=== PATIENT | female | born 1985 | race African-American/Black ===

== ENCOUNTER 2024-04-01 16:52 | Emergency (ER) | payer OTHER, SELFPAY ==
[2024-04-01 16:59] VITALS: BP 177/98; PULSE 102; RESP 20; TEMP 36.8; O2SAT 98
--- NOTE | 2024-04-01 17:00 | DI.CT_ITS ---
Exam(s) CT HEAD WO EXAM: CT HEAD WO CLINICAL HISTORY: headaches with visual changes. TECHNIQUE: Imaging Protocol: Axial computed tomography images with coronal and sagittal reformatted images were created and reviewed COMPARISON: No exams were available for comparison FINDINGS: Ventricles and Extra axial spaces: Normal in size and morphology for the patient's age. Hemorrhage: None. Cerebral parenchyma: No evidence of acute infarct or mass. Midline shift: None. Brainstem/Cerebellum: Normal. Calvarium: Normal. Visualized Paranasal sinuses:Clear. Mastoids: Clear. Soft Tissues: Unremarkable. ORBITS: Unremarkable. PITUITARY: Not enlarged. IMPRESSION: No acute intracranial process. RADIATION DOSE DELIVERED: Total DLP DATA REPOSITORY: All CT scans at this facility are submitted to the National Radiology Data Registry (NRDR) Dose Index Registry (DIR) with the [employer] (ACR). RADIATION OPTIMIZATION: All CT scans at this facility use at least one of these dose optimization te chniques: automated exposure control; mA and/or kV adjustment per patient size (includes targeted exa ms where dose is matched to clinical indication); or iterative reconstruction.
--- NOTE | 2024-04-01 17:12 | W.ED.GENAD ---
Discharge Plan Disposition Patient Disposition: Home Condition: Stable Discharge Details Clinical Impression: Headache Primary Care Provider: None,None ED Provider: Henrik Nunez Home Meds and New Rx's Prescriptions: No Action No Known Home Meds Discharge Instructions Additional Instructions: Your lab work and CAT scan did not show any concerning findings. I suspect this could be a tension headache versus migraine If you are still having symptoms follow-up with her primary care provider If you feel more ill, have new symptoms such as persistent vomiting or high fevers return to the emergency department for reevaluation. HPI General Mode of arrival: ambulatory. Date/Time Provider Initiated Documentation: 04/01/24 16:53. Limitations to Documentation: no limitations. Information obtained by: patient. History of Present Illness 39 year old F presents to the emergency department with the chief complaint of headaches, described as moderate, Quality is described as aching, and is localized to the head. Patient reports no radiation. Patient started experiencing this week(s) (3) and it has been intermittent. No relieving factors improve symptom(s), No exacerbating factors reported . Patient notes denies fever/chills. Patient did receive the following treatments prior to arrival, other (tylenol) Related Data Home Medications ?Medication ?Instructions ?Recorded ?Confirmed Unknown [No Known Home Meds] 04/01/24 04/01/24 Allergies Allergy/AdvReac Type Severity Reaction Status Date / Time No Known Allergies Allergy Verified 04/01/24 17:04 General Stated Complaint: Headache PEDRO: 3 Review of Systems All systems reviewed & are unremarkable except as noted in HPI and below Constitutional Constitutional: Denies chills, Denies fever(s), Reports headache(s) and Denies weakness Eyes Eyes: Denies loss of vision and Reports other visual disturbances ENT Ears, Nose, Mouth, and Throat: Reports headache(s) Cardiovascular Cardiovascular: Denies chest pain and Denies dyspnea Respiratory Respiratory: Denies cough and Denies dyspnea Gastrointestinal Gastrointestinal: Denies abdominal pain, Reports nausea and Denies vomiting Neurologic Neurologic: Reports headache(s), Denies loss of vision and Denies weakness Exam Const General: no acute distress Orientation: alert HENAL Head: normal to inspection Ears: external ears normal General nose exam: external nose normal Mouth: moist mucous membranes Eyes General: appearance normal, both eyes and all related structures Alignment and Position: alignment normal Periorbital: periorbital findings normal Eyelids: eyelids normal Conjunctivae: conjunctivae normal Pupils: PERRL EOM: EOM intact bilaterally Neck Neck: normal visual inspection and meningismus present Resp Effort & Inspection: normal respiratory effort and able to speak in complete sentences Cardio Rate: regular rate Skin General skin exam: no rashes or lesions noted Neuro General: patient alert and patient oriented x3 Extrem General: normal to inspection Psych Mental Status: mental status grossly normal Course Vital Signs Vital signs: Vital Signs Temperature 36.8 C 04/01/24 16:59 Pulse 102 H 04/01/24 16:59 Respiratory Rate 20 04/01/24 16:59 Blood Pressure 177/98 H 04/01/24 16:59 Pulse Oximetry 98 04/01/24 16:59 Temperature 36.8 C 04/01/24 16:59 Pulse 102 H 04/01/24 16:59 Respiratory Rate 20 04/01/24 16:59 Respiratory Effort Normal 04/01/24 17:03 Blood Pressure 177/98 H 04/01/24 16:59 Pulse Oximetry 98 04/01/24 16:59 Pain Level 0 04/01/24 16:59 Medical Decision Making 39-year-old female with no significant past medical history other than has had intermittent headaches in the past comes in with 3 weeks of more frequent anterior head aches and with some blurred vision intermittently. Denies any fevers, neck stiffness, weakness. She otherwise feels well. She states the pain slowly increases and is not thunderclap. She has had some nausea without vomiting. She is well-appearing on exam, has no facial or periorbital swelling, pupils are equal and reactive to light. Extraocular eye movements are intact. No restricted neck movements, normal gait. I suspect migraine but given increase in terms of the last 3 weeks will check basic labs and CT head to evaluate for possible mass, she has no symptoms to suggest subarachnoid hemorrhage and no findings on exam or history to suggest [employer] infection. Labs and imaging unremarkable, patient stable. Still has no meningismus and headache improved. Suspect tension headache versus migraine, she is stable for discharge and will follow-up with her PCP, return precautions given Differential Diagnosis Differential Diagnosis: Tension headache, migraine, mass Lab Data Lab results reviewed: Yes I reviewed the patient's lab results. Quality:SDOH Health Related Social Needs: No Data to Display PFSH All Active Problems (Updated 04/01/24 @ 18:26 by Henrik Nunez MD) Headache (Acute) Social History Smoking/Tobacco Use Status: Never Smoking risk assessment performed?: Yes Alcohol Intake: current Alcohol Intake frequency: a few times a month Drug use: Never Substance use type: does not use Housing: house Do you feel safe at home: Yes Do you feel safe in your relationship?: Yes
[2024-04-01 17:26] LABS: Abs Immature Grans 0.04 10^3/uL (0.0-0.06); Absolute Basophil Count 0.06 10^3/uL (0.0-0.2); Absolute Eosinophil Count 0.04 10^3/uL (0.0-0.7); Absolute Lymphocyte Count 2.54 10^3/uL (1.2-3.4); Absolute Monocyte Count 0.54 10^3/uL (0.1-0.8); Absolute Neutrophil Count 6.86 10^3/uL (1.2-6.7); Basophils % 0.6 %; Eosinophils % 0.4 %; HCT 36.7 % (36.0-46.0); HGB 11.8 g/dL (11.2-15.7); Immature Grans % 0.4 %; Lymphocytes % 25.2 %; MCH 26.4 pg (27.0-33.0); MCHC 32.2 % (32.0-36.0); MCV 82 fL (80-95); MPV 10.3 fL (8.0-11.0); Monocytes % 5.4 %; Platelet Count 350 10^3/uL (130-400); RBC 4.47 10^6/uL (3.93-5.22); RDW 14.5 % (11.7-14.6); RDW-SD 43.5 fL; WBC 10.08 10^3/uL (4.4-10.8)
[2024-04-01] MEDS: Prochlorperazine 10 MG/2 ML VIAL IVP (17:34)
[2024-04-01] MEDS: Dexamethasone 10 MG/ML VIAL IVP (17:35)
[2024-04-01] MEDS: Ketorolac 15 MG/ML VIAL IVP (17:35)
[2024-04-01 17:42] LABS: ALT 22 U/L (14-59); AST 14 U/L (15-37); Albumin 3.7 g/dL (3.4-5.0); Alkaline Phosphatase 75 U/L (46-116); Anion Gap 8.6 mmol/L (3-11); BUN 10 mg/dL (7-18); Bilirubin, Total 0.43 mg/dL (0.2-1.0); CO2 28.4 mmol/L (21.0-32.0); Calcium 8.7 mg/dL (8.5-10.1); Chloride 103 mmol/L (98-107); Estimated GFR 73.95 (mL/min/1.73m2); Glucose 107 mg/dL (74-106); Magnesium 1.9 mg/dL (1.8-2.4); Potassium 3.9 mmol/L (3.5-5.1); Sodium 140 mmol/L (136-145); Total Protein 7.9 g/dL (6.4-8.2)
--- OUTSIDE RECORDS SUMMARY | 2024-04-01 18:07 | XMS_ITS | Clinical Summary ---
Author Organization [facility] Address [address] [place] [address] Care Team Providers Care Medicaid Plan Compliance Director Name Role Phone Unavailable Primary Care Provider Unavailabl e Social History Tobacco Use Types Packs/Day Years Used Date Smoking Tobacco: Never Assessed Comments Unknown Sex and Gender Information Value Date Recorded Sex Assigned at Not on file Legal Sex Female 12:27 EDT Gender Identity Not on file Sexual Orientation Not on file Plan of Treatment Health Maintenance Due Date Last Done Comments Hepatitis C Screen 1986 Hepatitis B Vaccine (1 of 3 - 19+ 3-dose series) 02/09 COVID-19 Vaccine ( season) 2023
--- OUTSIDE RECORDS SUMMARY | 2024-04-01 18:07 | XMS_ITS | Encounter Summary ---
Author Organization [facility] Address [address] [place] [id number] Care Team Providers Care Mechanical Facilities Technician Name Role Phone Unavailable Primary Care Provider Unavailabl e Encounter Details Date Type Department Care Team (Late st Contact Info) Description 11/03/2021 Lab Requisition [facility] Pathology & Laboratory Medicine - [address] [address] Outr Resulting Lab, Provider Social History Tobacco Use Types Packs/Day Years Used Date Smoking Tobacco: Never Assessed Comments Unknown Sex and Gender Information Value Date Recorded Sex Assigned at Not on file Legal Sex Female 12:27 EDT Gender Identity Not on file Sexual Orientation Not on file documented as of this encounter Plan of Treatment Not on file documented as of this encounter Procedures Procedure Name Priority Date/Time Associated Diagnosis Comments QUANTIFERON MITOGEN (PERFORMABLE) Today 11/02/2021 11:20 EDT QUANTIFERON TB2 (PERFORMABLE) Today 11/02/2021 11:20 EDT QUANTIFERON TB1 (PERFORMABLE) Today 11/02/2021 11:20 EDT QUANTIFERON NIL (PERFORMABLE) Today 11/02/2021 11:20 EDT QUANTIFERON INTERPRETATION (PERFORMABLE) Today 11/02/2021 11:20 EDT QUANTIFERON TB GOLD PLUS Routine 11/02/2021 11:20 EDT documented in this encounter Results * QUANTIFERON INTERPRETATION (PERFORMABLE) (11/02/2021 11:20 EDT) Quantiferon Interpretation Negative Negative 11/07/2021 11:41 EDT [facility] Comment:No interferon-gamma response to M. tuberculosis antigens was detected. ??Infection with M. tuberculosis is unlikely. A single negative result does not exclude infection with M. tuberculosis. ??In patients at high risk for M. tuberculosis infection, a second test should be considered. TB1 Ag minus Nil 0.02 IU/ml 11/08/19 11:41 EDT [facility] TB2 Ag minus Nil 0.05 IU/mL 11/08/19 11:41 EDT [facility] Blood VENOUS BLOOD / Unknown 11/02/2021 11:20 EDT 11/06/2021 20:28 EDT Narrative [facility] - 11/07/2021 11:41 EDT Results were obtained with the [employer] QuantiFERON-TB Gold Plus CLIA. New platform in use 12/28/2020 us Provider Outr Resulting Lab IMMUNOLOGY AND SEROL OGY ORDERABLES Final Result Performing Organization Address [facility] Co de Phone Number [facility] [address] [place] [id number] * QUANTIFERON MITOGEN (PERFORMABLE) (11/02/2021 11:20 EDT) Blood VENOUS BLOOD / Unknown 11/02/2021 11:20 EDT 11/03/2021 16:36 EDT us Provider Outr Resulting Lab IMMUNOLOGY AND SEROL OGY ORDERABLES Final Result Performing Organization Address [facility] Co de Phone Number [facility] [address] [place] [phone] * QUANTIFERON TB2 (PERFORMABLE) (11/02/2021 11:20 EDT) Blood VENOUS BLOOD / Unknown 11/02/2021 11:20 EDT 11/03/2021 16:36 EDT us Provider Outr Resulting Lab IMMUNOLOGY AND SEROL OGY ORDERABLES Final Result Performing Organization Address [facility] Co de Phone Number [facility] [address] [place] [address] * QUANTIFERON TB1 (PERFORMABLE) (11/02/2021 11:20 EDT) Blood VENOUS BLOOD / Unknown 11/02/2021 11:20 EDT 11/03/2021 16:36 EDT us Provider Outr Resulting Lab IMMUNOLOGY AND SEROL OGY ORDERABLES Final Result Performing Organization Address [facility] Co de Phone Number [facility] [address] [place] [address] * QUANTIFERON NIL (PERFORMABLE) (11/02/2021 11:20 EDT) Blood VENOUS BLOOD / Unknown 11/02/2021 11:20 EDT 11/03/2021 16:36 EDT us Provider Outr Resulting Lab IMMUNOLOGY AND SEROL OGY ORDERABLES Final Result Performing Organization Address [facility] Co de Phone Number [facility] [address] [place] [address] documented in this encounter Visit Diagnoses Not on filedocumented in this encounter
--- OUTSIDE RECORDS SUMMARY | 2024-04-01 18:07 | XMS_ITS | Referral Summary ---
Author Organization [facility] Address [address] [place] [address] Care Team Providers Care Paper Baling Machine Operator Name Role Phone Unavailable Primary Care Provider Unavailabl e Social History Tobacco Use Types Packs/Day Years Used Date Smoking Tobacco: Never Assessed Comments Unknown Sex and Gender Information Value Date Recorded Sex Assigned at Not on file Legal Sex Female 12:27 EDT Gender Identity Not on file Sexual Orientation Not on file Plan of Treatment Not on file
--- OUTSIDE RECORDS SUMMARY | 2024-04-01 18:07 | XMS_ITS | Encounter Summary ---
Author Organization [facility] Address [address] [place] [address] Care Team Providers Care Catheterization Laboratory Technician Name Role Phone Unavailable Primary Care Provider Unavailabl e Encounter Details Date Type Department Care Team (Late st Contact Info) Description 11/02/2021 Lab Requisition [facility] Pathology & Laboratory Medicine - [facility] [address] [place] [address] Outr Resulting Lab, Provider Social History Tobacco [...] Procedure Name Priority Date/Time Associated Diagnosis Comments HOLD SST Today 11/02/2021 11:20 EDT HOLD SST Today 11/02/2021 11:20 EDT HOLD SST Today 11/02/2021 11:20 EDT MEASLES IGG AB Today 11/02/2021 11:20 EDT RUBELLA IGG ANTIBODY Today 11/02/2021 11:20 EDT HEPATITIS B SURFACE ANTIBODY Today 11/02/2021 11:20 EDT VARICELLA IGG ANTIBODY Today 11/02/2021 11:20 EDT MUMPS ANTIBODY IGG Today 11/02/2021 11 :20 EDT documented in this encounter Results * HOLD SST (11/02/2021 11:20 EDT) Hold Hold 11/02/2021 18:47 EDT [facility] Blood VENOUS BLOOD / Unknown 11/02/2021 11:20 EDT 11/02/2021 17:35 EDT us Provider Outr Resulting Lab LAB INFO SERVICE AND SUPPORT & PHONE RESULT Final Result [facility] [address] [place] [address] * HOLD SST (11/02/2021 11:20 EDT) Hold Hold 11/02/2021 18:47 EDT [facility] Blood VENOUS BLOOD / Unknown 11/02/2021 11:20 EDT 11/02/2021 17:35 EDT us Provider Outr Resulting Lab LAB INFO SERVICE AND SUPPORT & PHONE RESULT Final Result Performing Organization Address City/[facility]/ZIP Co de Phone Number [facility] [address] [place] [address] * HOLD SST (11/02/2021 11:20 EDT) Hold Hold 11/02/2021 18:47 EDT [facility] Blood VENOUS BLOOD / Unknown 11/02/2021 11:20 EDT 11/02/2021 17:35 EDT us Provider Outr Resulting Lab LAB INFO SERVICE AND SUPPORT & PHONE RESULT Final Result Performing Organization Address City/[facility]/ZIP Co de Phone Number [facility] [address] [place] [address] * HEPATITIS B SURFACE ANTIBODY (11/02/2021 11:20 EDT) Hep B Surface Ab, Quantitative >1,000.0 See Note mIU/mL 11/03/2021 8:50 EDT [facility] Comment: Reference Range for Hep B Surface Ab, Quant: Positive: >= 10.0 mIU/mL Negative: ??< 10.0 mIU/mL Patient is presumed to be immune to infection with Hepatitis B Virus. Hep B Surface Ab, Qualitative Positive See Note 11/03/2021 8:50 EDT [facility] Comment: Reference Range for Hep B Surface Ab, Qual: Unvaccinated: ??Negative Vaccinated: ??Positive Blood VENOUS BLOOD / Unknown 11/02/2021 11:20 EDT 11/02/2021 17:33 EDT us Provider Outr Resulting Lab CHEMISTRY & BLOOD GA S ORDERABLES Final Result [facility] [address] [place] [address] * MEASLES IGG AB (11/02/2021 11:20 EDT) Measles IgG Ab Positive See Note 11/03/2021 13:33 EDT [facility] Comment:Presence of detectab le measles virus IgG antibodies. Blood VENOUS BLOOD / Unknown 11/02/2021 11:20 EDT 11/02/2021 17:33 EDT us Provider Outr Resulting Lab IMMUNOLOGY AND SEROL OGY ORDERABLES Final Result Performing Organization Address City/[facility]/ZIP Co de Phone Number [facility] [address] [place] [address] * VARICELLA IGG ANTIBODY (11/02/2021 11:20 EDT) Varicella IgG Ab Positive See Note 11/03/2021 13:30 EDT [facility] Comment:Presence of detectab le Varicella Zoster virus IgG antibodies. Blood VENOUS BLOOD / Unknown 11/02/2021 11:20 EDT 11/02/2021 17:33 EDT us Provider Outr Resulting Lab IMMUNOLOGY AND SEROL OGY ORDERABLES Final Result Performing Organization Address City/[facility]/ZIP Co de Phone Number [facility] [address] [place] [address] * MUMPS ANTIBODY IGG (11/02/2021 11:20 EDT) Mumps Antibody IgG Positive See Note 11/03/2021 13:35 EDT [facility] Comment:Presence of detectab le mumps virus IgG antibodies. Blood VENOUS BLOOD / Unknown 11/02/2021 11:20 EDT 11/02/2021 17:33 EDT us Provider Outr Resulting Lab IMMUNOLOGY AND SEROL OGY ORDERABLES Final Result Performing Organization Address City/[facility] Co de Phone Number [facility] [address] [place] [address] * RUBELLA IGG ANTIBODY (11/02/2021 11:20 EDT) Rubella IgG Ab Positive See Note 11/03/2021 13:38 EDT [facility] Comment:Positive for IgG ant ibodies to Rubella virus. Blood VENOUS BLOOD / Unknown 11/02/2021 11:20 EDT 11/02/2021 17:33 EDT us Provider Outr Resulting Lab CHEMISTRY & BLOOD GA S ORDERABLES Final Result Performing Organization Address City/[facility]/ZIP Co de Phone Number [facility] [address] [place] [address] documented in this encounter Visit Diagnoses Not on filedocumented in this encounter
== END 2024-04-01 18:54 | disposition home or self-care (01) ==
PROVIDERS: Emergency Provider Emergency Medicine
DX: R51.9 Headache, unspecified (principal); R11.0 Nausea
CPT/HCPCS: 80053; 96374; 96375; 99285; 70450; 83735; 85025; 99284; J0780; J1100; J1885